=== PATIENT | female | born 1975 | race Caucasian/White ===

== ENCOUNTER 2016-11-24 02:41 | Emergency (ER) | payer SELFPAY ==
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
--- NOTE | ~2016-11-24 | CT71 ---
[facility] A Service of [facility] RADIOLOGY TEXT RESULTS PATIENT: JUSTIN WHELAN LOCATION: [facility] : 75 UNIT #: [id number] AGE: [address]: Nancy Trevizo MD SEX: F ORDER DR: [id number] [place] [id number] [facility]. [place], [place] [address] [id number] E MR#: [id number] [facility] #: [id number] NAME: JUSTIN WHELAN : 1975 SEX: F STUDY DATE/TIME: 11/24/2016 8:31 UNIT: [facility] ROOM: STUDY DESCRIPTION: CT Head Wo Contrast Attending Physician: Nancy Trevizo M.D. Ordering Physician: Marcus Roldan D.O. Primary Care Physician: Farhad Brown M.D. MEDICAL IMAGING REPORT This report is preliminary unless electronic signature is present EXAM CT head without contrast, 11/24/2016. HISTORY 41-year-old female with frontal head pain for 2 days. Patient states "knot" above left eye. No reported injury. COMPARISON None TECHNIQUE Routine, unenhanced, axial images performed through the brain. This CT exam was performed with one or more of the following radiation dose reduction techniques: automatic exposure control, adjustment of mA and/or kV according to patient size, and iterative reconstruction. FINDINGS No hemorrhage, acute infarction, mass lesion, or abnormal extraaxial fluid collection. No midline shift or focal mass effect. Ventricular system normal in size and configuration. No acute bony abnormality. There is minimal nonspecific left frontal scalp soft tissue swelling. There is also a 6 mm subcutaneous nodule along the left frontal scalp which may represent an epidermal or sebaceous cyst. Visualized paranasal sinuses and mastoid air cells are clear. IMPRESSION 1. No acute intracranial abnormality. 2. Mild nonspecific left frontal scalp soft tissue swelling. Correlation with any history of injury or possible infection. No drainable fluid collections. There is also incidental note of a 6 mm subcutaneous nodule along the upper left frontal scalp, possibly representing epidermal or sebaceous cysts. [facility] A Service of [facility] RADIOLOGY TEXT RESULTS PATIENT: JUSTIN WHELAN LOCATION: [facility] #: [id number] : 75 UNIT #: [id number] AGE: [address]: Nancy Trevizo MD SEX: F ORDER DR: Dictated by... Messi Leo M.D. THIS IS AN ELECTRONICALLY VERIFIED REPORT Messi Leo M.D. at 11/25/2016 2:34 PM MYNOR/maia TD: 11/24/2016 10:30 JOB #: [id number] MEDICAL IMAGING REPORT Page 1 of 1 COPY
--- NOTE | ~2016-11-24 | CT2 ---
[facility] A Service of [facility] RADIOLOGY TEXT RESULTS PATIENT: JUSTIN WHELAN LOCATION: [facility] : 75 UNIT #: [id number] AGE: [address]: Nancy Trevizo MD SEX: F ORDER DR: [id number] [place] [id number] [facility]. [place], [place] [address] [id number] E MR#: [id number] Acc #: [id number] NAME: JUSTIN WHELAN : 1975 SEX: F STUDY DATE/TIME: 11/24/2016 8:34 UNIT: [facility] ROOM: STUDY DESCRIPTION: CT Abd and Pelv W Cont Attending Physician: Nancy Trevizo M.D. Ordering Physician: Nancy Trevizo M.D. Primary Care Physician: Farhad Brown M.D. MEDICAL IMAGING REPORT This report is preliminary unless electronic signature is present EXAM CT of the abdomen and pelvis with contrast HISTORY Right side abdominal pain for 2 days. COMPARISON None TECHNIQUE The patient was given 100 mL of Isovue-370 and axial 5.0 mm images were obtained through the abdomen and pelvis. This CT exam was performed with one or more of the following radiation dose reduction techniques: automatic exposure control, adjustment of mA and/or kV according to patient size, and iterative reconstruction. FINDINGS The lung bases are clear. The gallbladder has been removed. The liver, spleen, pancreas, and adrenal glands are normal. The kidneys are normal except for two small cysts in the left kidney measuring about 1.0 cm each. The aorta is normal in size and there is no adenopathy. The bowel is normal in appearance. The uterus and adnexal regions are normal. The bones are unremarkable. IMPRESSION 1. Prior cholecystectomy. 2. Otherwise the study is normal except for small incidental left renal cysts. [facility] A Service [facility] RADIOLOGY TEXT RESULTS PATIENT: JUSTIN WHELAN LOCATION: [facility] : 75 UNIT #: [id number] AGE: [address]: Nancy Trevizo MD SEX: F ORDER DR: Dictated by... Luciano Whelan M.D. THIS IS AN ELECTRONICALLY VERIFIED REPORT Luciano Whelan M.D. at 11/25/2016 3:55 PM Nisa TD: 11/24/2016 10:36 JOB #: [id number] MEDICAL IMAGING REPORT Page 1 of 1 COPY
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
[~2016-11-24 02:41] MED LIST: ACETAMINOPHEN PO; ACULAR LS5 ML OP; ALDACTAZIDE 25/1 TAB PO; AMOXICILLIN PO; AMOXIL875 MG PO; ASPIR-TRIN325 MG; IBUPROFEN200 M1 PO; NO MEDICATIONS; OFLOXACIN5 M1 OD; PEN-VEE K PO; TOBREX5 ML OP; TYLENOL #3 PO
[2016-11-24 10:40] LABS: POC - CREATININE 0.66 mg/dL (0.44-1.03); POC - GFR >60.0 mL/min (>60)
== END 2016-11-24 10:36 | disposition home or self-care (01) ==
LOC: CED 02:41
PROVIDERS: Emergency Medicine
DX: S20.211A Contusion of right front wall of thorax, initial encounter (principal); S00.83XA Contusion of other part of head, initial encounter; F17.200 Nicotine dependence, unspecified, uncomplicated; Y08.89XA Assault by other specified means, initial encounter; Y92.9 Unspecified place or not applicable
CPT/HCPCS: 70150; 70450; 71101; 72040; 74177; 82565; 84703; 99284; Q9967